=== PATIENT | male | born 1960 | race Caucasian/White ===

== ENCOUNTER 2019-02-09 16:53 | Emergency (ER) | payer BC ==
--- NOTE | 2019-02-09 17:53 | RAD ---
XR Chest Pa Lat STANDARD History: Shortness of breath. Exposure to fumes. Comparison: Radiograph 2011 Findings: Old right posterior rib fractures. Plate and screw fixation through a right clavicular frac ture. Lungs are clear. No pneumothorax. No effusion. Cardiac silhouette and mediastinal contours are within normal limits. Impression: No acute intrathoracic abnormality.
== END 2019-02-09 18:26 | disposition home or self-care (01) ==
LOC: ERS 16:53
DX: Z77.098 Contact with and (suspected) exposure to other hazardous, chiefly nonmedicinal, chemicals (principal)
CPT/HCPCS: 71046; 93005

== ENCOUNTER 2019-07-07 11:46 | Emergency (ER) | payer BC, SELFPAY ==
[2019-07-07 12:20] LABS: #Lymphocytes 0.9 thou/uL (1.20-3.40); #Monocytes 0.4 thou/uL (0.11-0.59); #Neutrophils 2.6 thou/uL (1.40-6.50); %Basophils 1.1 % (0.0-1.0); %Eosinophils 1.2 % (0.0-10.0); %Lymphocytes 23.7 % (21.0-51.0); %Monocytes 9.1 % (0.0-10.0); %Neutrophils 64.8 % (42.0-75.0); Hemoglobin 16.7 g/dL (14.0-18.0); Mean Corpuscular HGB CONC 33.3 g/dL (32.0-36.0); Mean Corpuscular Hemoglobin 30.2 pg (27.0-31.0); Mean Corpuscular Volume 90.6 fL (78.0-98.0); Mean Platelet Volume 8.7 fL (7.4-10.4); Platelet Count 157 thou/uL (130-400); RBC Distribution Width 11.8 % (11.5-14.5); Red Blood Cell (RBC) Count 5.53 mill/uL (4.70-6.10)
--- NOTE | 2019-07-07 12:20 | CT ---
CT BRAIN WITHOUT CONTRAST: HISTORY: Left facial numbness and pain FINDINGS: No evidence of acute infarct, hemorrhage, midline shift or abnormal extra-axial fluid collections is seen. The ventricular size is appropriate and the basilar cisterns are patent. The bony calvarium is intact. The visualized paranasal sinuses and mastoid air cells are well aerated. IMPRESSION: No CT evidence of acute intracranial process. Discussed over the telephone with ER physician Dr. Leandro Mota at 12:16 PM
[2019-07-07 12:36] LABS: ALT (SGPT) 30 U/L (8-55); AST (SGOT) 36 U/L (5-34); Albumin 4.6 g/dL (3.5-5.0); Alkaline Phosphatase 44 U/L (40-110); Anion Gap 12 mmol/L (10-20); BUN (Urea Nitrogen) 17 mg/dL (8.4-25.7); Bilirubin, Total 0.9 mg/dL (0.2-1.2); Calc. Creatinine Clearance 0 mL/min (70-130); Calcium 9.5 mg/dL (7.8-10.44); Carbon Dioxide 32 mmol/L (22-29); Chloride 102 mmol/L (98-107); Estimated GFR-MDRD 50; Globulin 2.7 g/dL (2.4-3.5); Glucose 82 mg/dL (70-105); Potassium 4.6 mmol/L (3.5-5.1); Protein, Total 7.3 g/dL (6.0-8.3); Sodium 141 mmol/L (136-145)
== END 2019-07-07 13:20 | disposition home or self-care (01) ==
LOC: ERS 11:46
DX: R20.0 Anesthesia of skin (principal)
CPT/HCPCS: 36415; 70450; 80053; 84484; 85025; 93005

== ENCOUNTER 2020-05-19 12:07 | Day surgery (SDC) | payer OTHER ==
[2020-05-14 10:07] LABS: #Monocytes 0.4 10x3/uL (0.0-1.1); #Neutrophils 2.8 10x3/uL (1.5-8.4); %Basophils 0.7 % (0.0-2.0); %Eosinophils 0.7 % (0.0-6.0); %Monocytes 9.6 % (0.0-10.0); %Neutrophils 69.5 % (40.0-75.0); Hemoglobin 16.4 g/dL (14.0-18.0); Mean Corpuscular HGB CONC 32.7 G/DL (32.0-36.0); Mean Corpuscular Hemoglobin 29.9 PG (27.0-33.0); Mean Corpuscular Volume 91.6 fl (80.0-100.0); Mean Platelet Volume 10.8 fl (7.4-10.4); Platelet Count 175 10x3/uL (130-400); RBC Distribution Width 12.4 % (11.5-14.5); Red Blood Cell (RBC) Count 5.48 10x6/uL (4.40-5.80); White Blood Cell (WBC) Count 4.1 10x3/uL (4.5-11.0)
[2020-05-14 10:14] LABS: #Lymphocytes 0.8 10x3/uL (0.7-4.9)
[2020-05-16 09:38] VITALS: BMI 27.3
[2020-05-16 14:34] LABS: SARS-CoV-2 MS2 Positive; SARS-CoV-2 N Gene Negative; SARS-CoV-2 S Gene Negative; SARS-CoV-2 by NAA Not Detected (NotDetected); SARS-CoV-2 orf1ab Negative
[~2020-05-19 12:07] MED LIST: Dexamethasone 20 MG/5 ML VIAL ONE; Ketorolac Tromethamine 30 MG/ML VIAL ONE; Lidocaine 1% PF 5 ML VIAL ONE; Ondansetron PF 4 MG/2 ML Vial ONE; PROPOFOL 200 MG/20 ML VIAL ONE
[2020-05-19] MEDS ORDERED: Fentanyl 100 MCG/2 ML VIAL ONE (13:16)
[2020-05-19] MEDS ORDERED: Midazolam HCl 2 mg/2 ml Vial ONE (13:17)
[2020-05-19] MEDS ORDERED: Bupivacaine PF 0.5% 30 ML VIAL ONE (13:34)
[2020-05-19] MEDS ORDERED: Betamet Acet/Betamet Na Ph 30 MG/5 ML VIAL ONE (13:34)
[2020-05-19] MEDS ORDERED: Bacitracin Zinc Ointment 30 gm TUBE ONE (13:35)
--- NOTE | 2020-05-20 08:21 | OP ---
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 POSTOPERATIVE DIAGNOSIS: Right index finger giant cell tumor, 1.1 cm. PROCEDURE PERFORMED: Excision biopsy, right index finger radial aspect distal phalanx tip giant cell tumor. SPECIMEN: Sent to the lab is 1.1 cm giant cell tumor. BLOOD LOSS: 50 mL. TOURNIQUET TIME: 8 minutes. DESCRIPTION OF PROCEDURE: After successful general endotracheal anesthesia, the limb was prepped and draped. We then gave a 10 mL of 0.5% Marcaine block at metacarpophalangeal joint level with no epi. We waited 5 minutes, then exsanguinated the limb, inflated the tourniquet to 250 mmHg pressure and then outlined an incision approximately 1.5 cm for a mass that appeared to be about 1.5 cm. We carried the incision through the skin with an 11 blade knife, then Stoughton blade until we saw the mass immediately, it was brown, well circumcised and spongiform consistent with a giant cell tumor. It easily was dissected free from the digital nerves, which it had pushed ulnarly all three branches. This was excised, all mass, there was no evidence of bone or deep soft tissue involvement. The area was irrigated. The mass was sent to pathology after being measured and found to be 1.1 cm long. We then released the tourniquet, obtained hemostasis, closed the wound with 3 interrupted 4-0 nylon sutures and applied bacitracin, Adaptic, 4x4s, and a finger tube gauze with a wrap around the to prevent dislodging. He left the operating room without evidence of anesthetic or operative complication. Job ID: [id number]
== END 2020-05-19 17:00 | disposition home or self-care (01) ==
LOC: SDC 12:07
PROVIDERS: ATTEND Orthopaedic Surgery Hand Surgery
PROC: 0JBJ0ZZ Excision of Right Hand Subcutaneous Tissue and Fascia, Open Approach (ICD-10-PCS; principal; 2020-05-19)
DX: D48.1 Neoplasm of uncertain behavior of connective and other soft tissue (principal); Z79.899 Other long term (current) drug therapy; Z88.5 Allergy status to narcotic agent
CPT/HCPCS: 85025; 87635; 88307; J0690; J0702; J1100; J1885; J2250; J2405; J2704; J3010; J3490; S0020; U0003